=== PATIENT | female | born 1980 | race Caucasian/White ===

== ENCOUNTER 2017-11-22 01:50 | Emergency (ER) | payer SELFPAY ==
[2017-11-22 01:51] VITALS: BP 112/58; PULSE 86; RESP 18; TEMP 36.7; O2SAT 100; BMI 44.4
--- NOTE | 2017-11-22 02:11 | CT_ITS ---
STUDY: CT ABDOMEN AND PELVIS WITHOUT CONTRAST REASON FOR EXAM: Female, 37 years old. Large abdominal hernia patient lifted the bed and had increased pain. History of hypertension, COPD, hernia, appendectomy, cholecystectomy, mitral valve repair, RADIATION DOSAGE (If Supplied By Facility): CTDIvol = ( 21.47 ) mGy, DLP = ( 1083.71 ) mGycm TECHNIQUE: Transaxial 2.5 mm images were obtained from the dome of the diaphragm to the symphysis pubis without oral contrast, and without intravenous contrast. Sagittal and coronal images were reconstructed. This examination is limited for the evaluation of gastrointestinal, solid organs and vascular structures due to the lack of intravenous and oral contrast. There is obesity, the entirety of soft tissue is not imaged. Individualized dose optimization techniques were used for this CT. COMPARISON: CT abdomen pelvis 04/25/2017 axial images only. FINDINGS: There are areas of hyperinflation. Suspect minimal scarring versus atelectasis in the bases. Prior sternotomy and mitral valve replacement. There is no pericardial fluid. Normal liver. There are surgical clips in the gallbladder fossa consistent with a prior cholecystectomy. There is moderate splenomegaly. Normal pancreas. Normal bilateral adrenal glands. Normal right kidney. Normal left kidney. There is a large ventral hernia with an opening of 5.7 cm in width image 119 series 2 with the hernia sac measuring 9 x 16.5 x 15.5 cm ( AP x width x height ). Image 132 series 2, image 90 series 602. This contains nonobstructive, noncompromised small bowel loops. No mesenteric fat stranding. Normal visualized stomach. Normal small intestine. Normal colon. There are surgical clips in the region of the appendix consistent with a prior appendectomy. There is atherosclerotic calcification of the abdominal aorta, without a demonstrated aneurysm. Normal inferior vena cava. Normal retroperitoneum. Normal urinary bladder. Otherwise normal abdominal wall allowing for pannus formation. Normal osseous structures. CT/Abdomen/Pelvis without Cont IMPRESSION: Large ventral hernia at the umbilicus level containing nonobstructed noncompromised small bowel. This has markedly increased since previous exam. Postsurgical changes as above. Arteriosclerosis. Moderate stable splenomegaly. Increased obesity. Electronically Signed: Tracey Dickson MD at 3:46 EST , Service support ,
[2017-11-22] MEDS: Ondansetron 4 MG/2 ML Vial IV (02:29)
[2017-11-22] MEDS: 0.9% Normal Saline 1,000 ML 1000 ML IV (02:29)
[2017-11-22 02:32] LABS: Mucous, Urine 0 SEEN /hpf (<or=2+); White Blood Cells 0 SEEN /hpf (0-5)
[2017-11-22 02:38] LABS: Absolute Lymphocyte Count 1.85 X10^3/ul (0.83-4.51); Absolute Neutrophil Count 7.2 X10^3/uL (2.0-7.7); Basophil# 0.02 X10^3/uL; Basophil% 0.2 % (0-1); Hemoglobin 12.4 g/dl (12.0-15.0); Lymphocyte # 1.85 X10^3/ul (4.0); Lymphocyte % 18.6 % (19-41); Mean Corp Hgb Conc 32.6 g/gl (32-36); Mean Corpuscular Hgb 27.7 pg (27.0-32.0); Mean Corpuscular Volume 84.8 fL (81-99); Mean Platelet Vol. 9.5 fl (6.2-12.0); Monocyte# 0.75 X10^3/uL; Monocyte% 7.5 % (0-10); Neutrophil # 7.18 X10^3/uL (2.7-7.7); Neutrophil % 72.1 % (47-70); POSITIVE COUNT NO; POSITIVE DIFFERENTIAL NO; POSITIVE MORPHOLOGY NO; Platelet Count 219 K/mm3 (150-450); RBC Distribution Width CV 15.2 % (11.6-14.6); RBC Distribution Width SD 45.4 fl (35.1-43.9); Red Blood Count 4.48 M/mm3 (4.2-5.4)
[2017-11-22 02:40] LABS: Color, Urine Yellow (Yellow); Glucose, Dipstick Normal (Normal); Ketone-Dipstick Negative (Negative); Leukocyte Esterase-Dipstick Negative /ul (Negative); Nitrite-Dipstick Negative (Negative); Occult Blood-Urine 50 /ul (Negative); Protein-Dipstick Negative (Negative); Specific Gravity, Urine 1.015 (1.002-1.030); Urine Bilirubin Dipstick Negative (Negative); Urine Clarity Clear (Clear); Urine Urobilinogen Normal (Normal)
[2017-11-22 02:49] LABS: Bacteria RARE /hpf (None Seen); Red Blood Cells-Urine 0-5 SEEN /hpf (0-5); Squamous Epithelial Cells - UA 0-5 SEEN /hpf (5-10)
--- NOTE | 2017-11-22 02:55 | ED.DCSUM_ITS ---
- ER Visit Summary Date of Service: 11/22/17 Chief Complaint: Abdominal pain History of Present Illness: The patient is a 37 F with no local primary care physician. She reports that she has chronic abdominal pain due to a ventral hernia that is worsened over the past 2 days. She believes this is because she lifted a bed by herself 3 days ago. She describes as a cramping, aching pain that is 10 out of 10 with movement or touching it. It is 8 out of 10 which remains still. She has had nausea without vomiting. She has had no diarrhea. Her last problem was today. She has had no melena or hematochezia. She reports dysuria and frequency for the past 2 days. She is on her menstrual period now. No fever or chills. Physical Examination: Vitals: Stable. Afebrile. General: Well-nourished and well-developed. Head: Normocephalic atraumatic. Neck: Supple, no lymphadenopathy. No JVD. Nontender. Cardiovascular: Regular rate and rhythm. No murmurs. Respiratory: No respiratory distress. Clear to auscultation bilaterally. Abdominal: Soft, moderate tenderness palpation over a large ventral hernia in the mid abdomen due to her body habitus it is difficult to tell if this has bowel in it, nondistended, normal bowel sounds. No guarding, rebound, or peritoneal signs. Back: Nontender. Extremities: Nontender, no edema. Skin: Normal color, no rash. Neurologic: Alert and oriented ?3. Cranial nerves II through XII are intact. Normal strength and sensation. Psych: Normal affect. Test Results: Urinalysis is negative. CBC is marked for segment neutrophils of 72. Chem-7 is remarkable for a glucose of 111. LFTs are normal. Lipase is normal. test is negative. CT flank shows arge ventral hernia at the umbilicus level containing nonobstructed noncompromised small bowel. This has markedly increased since previous exam. Emergency Department Course and Treatment: Patient had an IV placed. She was given a liter bolus of normal saline. She is given morphine and Zofran IV. She is resting comfortably. Treatment Plan: An [facility] report was obtained which shows 2 prescriptions for opiates. She will be discharged with [place] and Zofran. Instructed to follow- up with Dr. Warren Mittal for further evaluation and treatment of her hernia. Disposition: To home in improved and stable condition. Impression: 1. Large ventral hernia. This note was generated with [employer] dictation software. It may contain incorrect words, spelling, and punctuation that were not noted in review of the chart prior to signing ED Disposition - Plan for ED Patient: Chief Complaint: Abd Pain Instructions: ED Hernia Inguinal Prescriptions: Hydrocodone Bitart/Apap 5-325 [[place] 5/325] 1 - 2 tablet PO Q4H PRN PRN 3 Days # 12 tablet PRN Reason: Pain Ondansetron [Zofran Odt] 4 mg PO Q8H PRN PRN #10 tablet PRN Reason: Nausea Referrals: Warren Mittal MD [STAFF PHYSICIAN] - 3-5 Days
[2017-11-22 03:03] LABS: AST(SGOT) 26 U/L (15-37); Alanine Aminotransfer ALT/SGPT 21 U/L (13-56); Albumin, Serum 3.7 g/dL (3.2-5.0); Alkaline Phosphatase 86 U/L (45-117); Anion Gap 6 (5-15); BUN 14 mg/dL (7-18); BUN/Creat Ratio 18.3 RATIO (10-20); Bilirubin, Direct 0.07 mg/dL (0.00-0.30); Calcium,Total 8.8 mg/dL (8.5-10.1); Chloride 106 mmol/L (98-107); Creatinine, Serum 0.76 mg/dL (0.55-1.02); EST Glomerular Filtration Rate 89 mL/min (>60); Est Glom Filt Rate - Afr Amer 108 mL/min (>60); Estimated Creatinine Clearance 156.73 ml/min; Globulin 4.1 g/dL (2.2-4.2); Glucose 111 mg/dL (74-106); Lipase 179 U/L (73-393); Potassium 4.1 mmol/L (3.5-5.1); Pregnancy, Serum, hCG Quali. NEGATIVE Negative (0-9 Nonpreg); Protein, Total 7.8 g/dL (6.4-8.2); Sodium Level 137 mmol/L (136-145)
[2017-11-22] MEDS: Ketorolac 30 MG/ML Syringe IV (03:36)
[2017-11-22] MEDS: HYDROcodone Bitartrate/Apap 5/325 Tablet PO (04:04)
[2017-11-22 04:06] VITALS: BP 118/46; PULSE 80; RESP 18; O2SAT 100
== END 2017-11-22 04:24 | disposition home or self-care (01) ==
PROVIDERS: Emergency Provider Emergency Medicine
DX: K43.9 Ventral hernia without obstruction or gangrene (principal); Z72.0 Tobacco use
CPT/HCPCS: 74176; 80048; 80076; 81001; 83690; 84703; 85025; 96361; 96374; 96375; 99284; J7030; A4216; J2405

== ENCOUNTER 2017-11-27 16:25 | Emergency (ER) | payer SELFPAY ==
[2017-11-27 16:25] VITALS: BP 141/71; PULSE 96; RESP 16; TEMP 36.3; O2SAT 98; BMI 44.6
[2017-11-27 16:32] VITALS: O2SAT 98
--- NOTE | 2017-11-27 16:38 | ED.DCSUM_ITS ---
- ER Visit Summary Date of Service: 11/27/17 Chief Complaint: Cough History of Present Illness: The patient is a 37 F with history of COPD and prior mitral valve repair presents to the emergency department with cough and sneezing. The patient is concerned because she was recently diagnosed the ventral hernia. States when she coughs she does get worsening pain. She has had no vomiting. She is having normal bowel movements. She denies any fevers or chills. Patient does smoke. She is not on home oxygen. She denies any chest pain or orthopnea. She denies any leg edema. She has no history of pulmonary embolus. Physical Examination: Vital signs reviewed General: Well-nourished, well-developed Head: Normocephalic, atraumatic Eyes: Pupils equal and reactive, extraocular muscles intact Neck, supple, no lymphadenopathy Heart: Regular rate and rhythm Respiratory: No distress, diminished in the bases Abdomen: Soft, nontender, nondistended, no peritoneal signs Back: Nontender Extremities: Nontender, no edema, no cords Skin: Normal color no rash Neuro: Alert and oriented, no focal or lateralizing deficits Test Results: [] Emergency Department Course and Treatment: The patient has no focal change in lung sounds. She is not tachypneic. There is no hypoxia. I do feel that she likely has a mild infectious bronchitis. With her underlying history of COPD and change in sputum, I am going to treat her for atypical pathogens. She will be started on azithromycin. The patient also be dispensed an inhaler and kept on a prednisone burst. I do not feel radiology or labs are necessary given her benign examination. The patient was counseled on concerning symptoms. She will be discharged home. Treatment Plan: [] Disposition: Charge Impression: 1. COPD exacerbation with bronchitis This note was generated with [employer] dictation software. It may contain incorrect words, spelling, and punctuation that were not noted in review of the chart prior to signing ED Disposition - Plan for ED Patient: Chief Complaint: Shortness of Breath Instructions: ED Upper Resp Infec Abx Tx Prescriptions: Albuterol Inhaler [Ventolin Hfa] 1 - 2 puff INHALATION Q4H PRN PRN #1 inhaler PRN Reason: Wheezing Azithromycin [Zithromax Z-Waldemar] 250 mg PO UD #1 box Prednisone [Deltasone] 60 mg PO DAILY #15 tab Referrals: Care Physician,No Primary [Primary Care Provider] -
== END 2017-11-27 16:55 | disposition home or self-care (01) ==
PROVIDERS: Emergency Provider Emergency Medicine
DX: J44.1 Chronic obstructive pulmonary disease with (acute) exacerbation (principal); J20.9 Acute bronchitis, unspecified; J44.0 Chronic obstructive pulmonary disease with (acute) lower respiratory infection; K43.9 Ventral hernia without obstruction or gangrene; F17.200 Nicotine dependence, unspecified, uncomplicated; E66.9 Obesity, unspecified
CPT/HCPCS: 99282